=== PATIENT | female | born 1955 | race Caucasian/White ===

== ENCOUNTER → 2016-05-25 | Outpatient (CLI) | payer OTHER ==
[~2016-05-25] VITALS: Ht 162.6 cm; Wt 95.3 kg
[~2016-05-25] MED LIST: CVS5TAB10 PO; DITR5TAB PO; LEVO25TA5 PO; LEXA1TAB PO; LIDOCAINE 2% INJ 100 MG/5 ML SDV (FOR ANES.) As Ordered ONE; MELO7.5T6 PO; MOTR200T44 PO; NORC5TAB PO; NS 1,000 ML IV SCH; PROPOFOL 200 MG/20 ML VIAL As Ordered ONE; SENN1TAB2 PO; VITA100054 PO
--- NOTE | 2016-05-25 10:22 | ROOR ---
Patient Name: Judy Marx Procedure Date: 05/25/2016 9:58 AM Date of : 1955 Age: 60 Room: [facility] Gender: Female Note Status: Finalized Procedure: Colonoscopy Indications: Hematochezia Providers: DO Zack Draper MD: GRETEL BARR NP Requesting Provider: Medicines: Propofol per Anesthesia Complications: No immediate complications. Estimated blood loss: None. Procedure: Pre-Anesthesia Assessment: - Prior to the procedure, a History and Physical was performed, and patient medications and allergies were reviewed. The patient is competent. The risks and benefits of the procedure and the sedation options and risks were discussed with the patient. All questions were answered and informed consent was obtained. Patient identification and proposed procedure were verified by the physician, the nurse, the anesthesiologist and the biochemistry technician in the endoscopy suite. Mental Status Examination: alert and oriented. Airway Examination: normal oropharyngeal airway and neck mobility. Respiratory Examination: clear to auscultation. CV Examination: normal. Prophylactic Antibiotics: The patient does not require prophylactic antibiotics. Prior Anticoagulants: The patient has taken no previous anticoagulant or antiplatelet agents. ASA Grade Assessment: II - A patient with mild systemic disease. After reviewing the risks and benefits, the patient was deemed in satisfactory condition to undergo the procedure. The anesthesia plan was to use monitored anesthesia care (MAC). Immediately prior to administration of medications, the patient was re-assessed for adequacy to receive sedatives. The heart rate, respiratory rate, oxygen saturations, blood pressure, adequacy of pulmonary ventilation, and response to care were monitored throughout the procedure. The physical status of the patient was re-assessed after the procedure. The Colonoscope was introduced through the anus and advanced to the cecum, identified by the appendiceal orifice, ileocecal valve and palpation. The colonoscopy was performed without difficulty. The patient tolerated the procedure well. Findings: The perianal exam findings include non-thrombosed internal hemorrhoids and internal hemorrhoids that prolapse with straining, but require manual replacement into the anal canal (Grade III). A 9 mm polyp was found in the transverse colon. The polyp was pedunculated. The polyp was removed with a hot snare. Resection and retrieval were complete. A single small-mouthed diverticulum was found in the sigmoid colon. Impression: - Non-thrombosed internal hemorrhoids and internal hemorrhoids that prolapse with straining, but require manual replacement into the anal canal (Grade III) found on perianal exam. - One 9 mm polyp in the transverse colon, removed with a hot snare. Resected and retrieved. - Diverticulosis in the sigmoid colon. Recommendation: - Patient has a contact number available for emergencies. The signs and symptoms of potential delayed complications were discussed with the patient. Return to normal activities tomorrow. Written discharge instructions were provided to the patient. - Repeat colonoscopy in 5-10 years for surveillance based on pathology results. - Return to my office PRN. - Telephone my office for pathology results in 1 week. Jos Rouse DO 05/25/2016 10:22:13 AM This report has been signed electronically. Number of Addenda: 0 Note Initiated On: 05/25/2016 9:58 AM Estimated Blood Loss: Estimated blood loss: none.
[2016-05-25 10:23] VITALS: BP 96/51
== END ==
LOC: M OPP 09:15
PROVIDERS: ATTEND Surgery
DX: K92.1 Melena (principal); D12.3 Benign neoplasm of transverse colon; K64.2 Third degree hemorrhoids; K57.30 Diverticulosis of large intestine without perforation or abscess without bleeding; E03.9 Hypothyroidism, unspecified; M19.011 Primary osteoarthritis, right shoulder; M54.2 Cervicalgia; F32.9 Major depressive disorder, single episode, unspecified; Z88.0 Allergy status to penicillin; Z79.899 Other long term (current) drug therapy

== ENCOUNTER 2016-07-03 00:53 | Emergency (ER) | payer OTHER ==
[~2016-07-03] VITALS: Ht 162.6 cm; Wt 95.3 kg
[~2016-07-03 00:53] MED LIST changes: -LIDOCAINE 2% INJ 100 MG/5 ML SDV (FOR ANES.) As Ordered ONE; -NS 1,000 ML IV SCH; -PROPOFOL 200 MG/20 ML VIAL As Ordered ONE
[2016-07-03 02:57] LABS: BASO % 0.5 % (0.0-1.0); EOS # 0.2 K/mm3 (0.0-0.50); EOS % 2.5 % (0.0-3.0); LARGE UNSTAINED CELL # 0.2 K/mm3 (0.0-0.4); LARGE UNSTAINED CELL % 3.3 % (0.0-4.0); LYMPH # 2.7 K/mm3 (1.5-4.5); LYMPH % 38.6 % (24.0-44.0); MEAN CORPUSCULAR HEMOGLOBIN 28.4 pg (27.0-33.0); MEAN CORPUSCULAR HGB CONC 33.4 g/dl (32.0-36.5); MEAN CORPUSCULAR VOLUME 84.9 fl (80.0-96.0); MONO # 0.3 K/mm3 (0.0-0.8); MONO % 4.9 % (0.0-5.0); NEUTROPHILS # 3.5 K/mm3 (1.8-7.7); NEUTROPHILS % 50.2 % (36.0-66.0); PLATELET COUNT, AUTOMATED 246 k/mm3 (150-450); RED CELL DISTRIBUTION WIDTH 12.4 % (11.5-14.5); WHITE BLOOD COUNT 6.9 K/mm3 (4.0-10.0)
[2016-07-03] MEDS ORDERED: KETOROLAC 30 MG/ML VIAL (J1885) IV ONE (03:00)
[2016-07-03] MEDS ORDERED: HYDROmorphone HCL 1 MG/ML SYRINGE (J1170) IV ONE (03:00)
[2016-07-03 03:03] LABS: ANION GAP 8 MEQ/L (8-16); BLOOD UREA NITROGEN 13 MG/DL (7-18); CALCIUM LEVEL 8.5 MG/DL (8.8-10.2); CARBON DIOXIDE LEVEL 30 MEQ/L (21-32); CHLORIDE LEVEL 105 MEQ/L (98-107); GLOMERULAR FILTRATION RATE > 60.0 (>45); GLUCOSE, FASTING 84 MG/DL (80-110); POTASSIUM SERUM 4.3 MEQ/L (3.5-5.1); SODIUM LEVEL 143 MEQ/L (136-145)
--- NOTE | 2016-07-03 04:30 | REPUSA ---
CLINICAL HISTORY: Left flank pain. TECHNIQUE: Multiple axial, sagittal and coronal CT images were obtained through the abdomen and pelvi s without administration of oral or IV contrast material. COMMENTS: The liver is of uniform attenuation without mass or defect. There is no intra or extrahepatic biliary ductal dilatation. The spleen is normal. The gallbladder is within normal limits. The pancreas is of normal contour and attenuation characteristics. There is no evidence of adrenal mass. The kidneys are normal in size, shape and configuration. No renal or ureteral calculi are identified. There is no hydroureter or hydronephrosis. There is no evidence for appendicitis. There is no bowel wall thickening. No evidence for small or la rge bowel obstruction. There is no evidence of abdominal ascites or lymphadenopathy. There is no evidence of intrinsic or extrinsic bladder mass. There is no pelvic ascites or lymphadeno nury. Images of the lung bases show no evidence of pleural or parenchymal mass. There are no pleural effusi ons. The bony structures are free of lytic or blastic lesions. Multilevel degenerative changes are seen in volving the thoracolumbar spine. Scattered calcifications are seen involving the aorta and major branches compatible with atherosclero sis. IMPRESSION: No acute pathology. Thank you for your kind referral of this patient.
[2016-07-03 05:42] VITALS: BP 135/68
== END 2016-07-03 05:47 | disposition home or self-care (01) ==
LOC: M ED 01:46
DX: M54.32 Sciatica, left side (principal); E03.9 Hypothyroidism, unspecified; F32.9 Major depressive disorder, single episode, unspecified; Z87.442 Personal history of urinary calculi; Z79.899 Other long term (current) drug therapy; Z88.0 Allergy status to penicillin; Z87.891 Personal history of nicotine dependence
CPT/HCPCS: 74176; 80048; 81001; 85025; 87086; 96374; 96375; 99283; J1170; J1885

== ENCOUNTER → 2016-07-23 | Outpatient (CLI) | payer OTHER ==
[2016-07-23 15:04] LABS: BASO % 0.5 % (0.0-1.0); EOS # 0.2 K/mm3 (0.0-0.50); EOS % 2.9 % (0.0-3.0); LYMPH % 26.8 % (24.0-44.0); MEAN CORPUSCULAR HEMOGLOBIN 28.4 pg (27.0-33.0); MEAN CORPUSCULAR HGB CONC 33.4 g/dl (32.0-36.5); MONO # 0.4 K/mm3 (0.0-0.8); MONO % 4.6 % (0.0-5.0); NEUTROPHILS # 4.8 K/mm3 (1.8-7.7); NEUTROPHILS % 63.3 % (36.0-66.0); RED CELL DISTRIBUTION WIDTH 12.6 % (11.5-14.5); WHITE BLOOD COUNT 7.6 K/mm3 (4.0-10.0)
[2016-07-23 15:19] LABS: ANION GAP 6 MEQ/L (8-16); BLOOD UREA NITROGEN 17 MG/DL (7-18); CALCIUM LEVEL 9.1 MG/DL (8.8-10.2); CARBON DIOXIDE LEVEL 31 MEQ/L (21-32); CHLORIDE LEVEL 104 MEQ/L (98-107); CREATININE FOR GFR 0.96 MG/DL (0.55-1.02); GLOMERULAR FILTRATION RATE > 60.0 (>45); GLUCOSE, FASTING 99 MG/DL (80-110); POTASSIUM SERUM 4.3 MEQ/L (3.5-5.1); SODIUM LEVEL 141 MEQ/L (136-145)
--- NOTE | 2016-07-23 15:20 | ECGEPIP ---
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 Nonspecific ST-T abnormalities. Increased heart rate compared with 12/02/2015 at 17:59 hours. Electronically Signed On 07-23-2016 15:20:25 EDT by London Jaimes
--- NOTE | 2016-07-23 15:24 | REP ---
Clinical: Preoperative assessment . Comparison: 12/02/2015 . Technique: PA and lateral. Findings: The mediastinum and cardiac silhouette are normal. The lung de leon are clear and without acute consolidation, effusion, or pneumothorax. The skeletal structures are intact and normal. Impression: 1. No acute cardiopulmonary process. Signed by Tawanda Goode MD 07/23/2016 03:15 P
== END ==
LOC: M LAB 14:20
PROVIDERS: ATTEND Nurse Practitioner Adult Health
DX: Z01.818 Encounter for other preprocedural examination (principal); Z79.899 Other long term (current) drug therapy

== ENCOUNTER → 2016-08-02 | Outpatient (CLI) | payer OTHER ==
--- NOTE | 2016-08-02 17:15 | REP ---
MRI study of the right wrist without and with IV gadolinium: History: Joint disorder right wrist. Primary lesion. No comparison radiographs. Gadolinium enhancement dose: 19.8 mL of intravenous ProHance. Technique: Markers are placed proximal to and distal to the presumed cyst reported by the patient. Axial, coronal and sagittal imaging planes are utilized. T1 and T2-weighted scans were obtained with and without fat saturation. MRI findings: The MRI study confirms the presence of a ganglion cyst extending outward from the radial navicular articulation into the volar and radial soft tissues at the wrist. This lobular cyst measures 1.6 cm in medial to lateral x 1.0 cm in proximal to distal x 0.9 cm in ventral to dorsal dimension. There is a small intraosseous cyst in the distal aspect of the radius 3 mm in diameter along its volar aspect. Cortical and medullary bone signal intensity are otherwise normal in the carpal metacarpal bones and the distal radius and ulna. Triangular fibrocartilage appears intact. No significant joint effusion is seen. The expected rim enhancement is seen in the ganglion cyst on postcontrast images. No other abnormal gadolinium enhancement is seen. Carpal tunnel and its contents are unremarkable. Impression: Ganglion cyst at the volar aspect of the radial carpal articulation along the radial side of the wrist. Signed by Dawood Lozano MD 08/02/2016 06:06 P
== END ==
LOC: M RAD 12:28
PROVIDERS: ATTEND Plastic Surgery Surgery of the Hand
DX: M67.431 Ganglion, right wrist (principal)
CPT/HCPCS: 73223; A9576

== ENCOUNTER 2016-08-08 20:30 | Emergency (ER) | payer OTHER ==
[~2016-08-08] VITALS: Ht 162.6 cm; Wt 95.3 kg
[~2016-08-08 20:30] MED LIST changes: -CVS5TAB10 PO; +CVS5TAB13 PO; +NORC1TAB4 PO; -NORC5TAB PO
[2016-08-08 21:00] VITALS: BP 134/73
[2016-08-08] MEDS ORDERED: NITROGLYCERIN 0.4 MG SUBL TABLET SL PRN (21:00)
[2016-08-08 21:08] LABS: BASO % 0.2 % (0.0-1.0); EOS # 0.1 K/mm3 (0.0-0.50); EOS % 1.6 % (0.0-3.0); LARGE UNSTAINED CELL # 0.1 K/mm3 (0.0-0.4); LARGE UNSTAINED CELL % 0.9 % (0.0-4.0); LYMPH # 0.7 K/mm3 (1.5-4.5); LYMPH % 10.5 % (24.0-44.0); MEAN CORPUSCULAR HEMOGLOBIN 28.8 pg (27.0-33.0); MEAN CORPUSCULAR HGB CONC 34.1 g/dl (32.0-36.5); MEAN CORPUSCULAR VOLUME 84.5 fl (80.0-96.0); MONO # 0.3 K/mm3 (0.0-0.8); MONO % 5.4 % (0.0-5.0); NEUTROPHILS # 4.9 K/mm3 (1.8-7.7); NEUTROPHILS % 81.5 % (36.0-66.0); PLATELET COUNT, AUTOMATED 201 k/mm3 (150-450); RED CELL DISTRIBUTION WIDTH 12.8 % (11.5-14.5)
[2016-08-08 21:37] LABS: ANION GAP 8 MEQ/L (8-16); BLOOD UREA NITROGEN 16 MG/DL (7-18); CALCIUM LEVEL 8.7 MG/DL (8.8-10.2); CARBON DIOXIDE LEVEL 29 MEQ/L (21-32); CHLORIDE LEVEL 103 MEQ/L (98-107); CREATININE FOR GFR 1.01 MG/DL (0.55-1.02); GLOMERULAR FILTRATION RATE 59.3 (>45); GLUCOSE, FASTING 128 MG/DL (80-110); POTASSIUM SERUM 3.4 MEQ/L (3.5-5.1); SODIUM LEVEL 140 MEQ/L (136-145)
[2016-08-08] MEDS ORDERED: ACETAMINOPHEN TAB 650MG DOSE (2X325MG) PO ONE (22:00)
[2016-08-08] MEDS ORDERED: ACETAMINOPHEN 325 MG TAB As Ordered ONE (22:02)
[2016-08-08] MEDS ORDERED: ISOVUE-370 76% 100ML VIAL (Q9967) As Ordered ONE (22:29)
--- NOTE | 2016-08-08 23:10 | REPUSA ---
CT angiogram of the chest Clinical statement: Chest pain and shortness of breath. Technique: Multiple axial CT images were obtained from the thoracic inlet through the upper abdomen a fter a bolus administration of nonionic intravenous contrast. Coronal and sagittal reconstructions we re also obtained. Comparison: 03/05/2015. Findings: The pulmonary arteries are well-opacified with contrast, with no intraluminal filling defec ts to suggest embolism. The thoracic aorta is unremarkable. Thyroid gland is within normal limits. Th ere is no thoracic lymphadenopathy. There are no pericardial or pleural effusions. The lungs are tita r. There is a calcified granuloma in the left upper lung. Limited imaging of the upper abdomen is unr emarkable. There are no suspicious osseous lesions. Impression: Unremarkable CT examination of the chest. No evidence of pulmonary embolism.
[2016-08-09] MEDS ORDERED: BENZONATATE 100 MG CAP PO ONE (02:30)
[2016-08-09 02:33] VITALS: BP 161/68
[2016-08-09] MEDS ORDERED: ACET30TAB PO (04:05)
[2016-08-09] MEDS ORDERED: ACETAMINOPH W/CODEINE #3 TAB UD PO ONE (04:15)
--- NOTE | 2016-08-09 06:17 | ECGEPIP ---
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
--- NOTE | 2016-08-09 07:31 | REP ---
CHEST PA AND LATERAL: 08/08/2016. Clinical history: Chest pain. Comparison: 07/23/2016, 12/02/2015. The lung de leon remain well inflated and there is no pleural effusion. There is no lateral pleural thickening or apical scarring. Slight elevation of the right compared to left diaphragm. There is no dense consolidation or parenchymal mass. The heart, mediastinal, hilar contours are normal. Airway and aorta normal for age. The bony thorax shows no focal lesion. Impression: 1. No acute cardiopulmonary change. Signed by Michele Ferguson MD 08/09/2016 04:38 P
--- NOTE | 2016-08-09 16:42 | ECGEPIP ---
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
== END 2016-08-09 04:53 | disposition home or self-care (01) ==
LOC: EDBD 20:30 → M ED 21:29
DX: R07.89 Other chest pain (principal); R05 Cough; Z87.442 Personal history of urinary calculi; E03.9 Hypothyroidism, unspecified; M50.20 Other cervical disc displacement, unspecified cervical region; Z79.899 Other long term (current) drug therapy
CPT/HCPCS: 71020; 71275; 80048; 82550; 82553; 83880; 85025; 87804; 93005; 93041; 94760; 99285; Q9967

== ENCOUNTER → 2016-08-22 | Outpatient (CLI) | payer OTHER ==
[~2016-08-22] MED LIST changes: +ACET30TAB PO
--- NOTE | 2016-08-22 21:51 | REP ---
CHEST X-RAY: CLINICAL: Chest pain. TECHNIQUE: PA and lateral. COMPARISON: 08/08/2016 The mediastinum and cardiac silhouette normal. Lung de leon stable. No acute consolidation, effusion or pneumothorax. Skeletal structures demonstrate age-related degenerative changes. IMPRESSION: Chronic stable changes. No acute cardiopulmonary process or focal consolidation. Unreviewed
== END ==
LOC: M RAD 09:37
PROVIDERS: ATTEND Nurse Practitioner Adult Health
DX: R07.9 Chest pain, unspecified (principal); J44.0 Chronic obstructive pulmonary disease with (acute) lower respiratory infection